=== PATIENT | female | born 1990 | race Caucasian/White ===

== ENCOUNTER 2017-09-10 23:08 | Emergency (ER) | payer OTHER ==
[~2017-09-10] VITALS: Ht 162.6 cm; Wt 91.2 kg
[2017-09-10] MEDS ORDERED: VENTOLIN HFA 1818 GM (23:20)
[2017-09-11 01:00] LABS: HEMOGLOBIN 14.9 gm/dL (12.0-15.0); MCH 30.8 pg (26.0-34.0); MCHC 33.2 g/dL (28.0-37.0); MCV 92.8 fL (80.0-100.0); MPV 10.5 fl. (7.2-11.1); NUCLEATED RBCS 0 /100WBC; PLATELET COUNT* 212 thou/uL (150-400); RBC 4.85 mil/uL (4.20-5.00); RDW-CV 12.5 % (10.5-14.5); WBC 12.8 thou/uL (4.0-11.0)
[2017-09-11 01:02] LABS: ANION GAP 11 mmol/L (7-16); BUN 18 mg/dL (7-18); CALCIUM 8.6 mg/dL (8.5-10.1); CHLORIDE 106 mmol/L (98-107); CO2 26 mmol/L (21-32); CREATININE 0.8 mg/dL (0.6-1.3); GLUCOSE 137 mg/dL (70-99); POTASSIUM 4.5 mmol/L (3.5-5.1); SODIUM 143 mmol/L (136-145)
[2017-09-11 01:12] LABS: ALBUMIN 3.7 g/dL (3.4-5.0); ALKALINE PHOSPHATASE 71 U/L (46-116); SGOT 14 U/L (15-37); SGPT 33 U/L (30-65); TOTAL BILIRUBIN 0.6 mg/dL (<0.1-1.0); TOTAL PROTEIN 7.4 g/dL (6.4-8.2); TROPONIN-I LEVEL <0.06 ng/mL (<0.06)
[2017-09-11 01:25] LABS: URINE BILIRUBIN NEGATIVE (Negative); URINE BLOOD NEGATIVE (Negative); URINE CLARITY CLEAR; URINE COLOR YELLOW; URINE GLUCOSE-RANDOM NEGATIVE (Negative); URINE KETONES NEGATIVE (Negative); URINE LEUKOCYTES-REFLEX NEGATIVE (Negative); URINE NITRITE-REFLEX NEGATIVE (Negative); URINE PROTEIN NEGATIVE (Negative); URINE SPECIFIC GRAVITY >= 1.030 (1.005-1.030); URINE UROBILINOGEN 0.2 E.U./dl (0.2-1.0)
[2017-09-11] MEDS ORDERED: CARAFATE 1 GM TA1 GM PO (02:13)
[2017-09-11 02:33] LABS: ABSOLUTE BASOPHILS 0.1 thou/uL (0.0-0.2); ABSOLUTE LYMPHOCYTES 1.2 thou/uL (0.8-5.3); ABSOLUTE MONOCYTES 0.6 thou/uL (0.0-1.2); ABSOLUTE NEUTROPHILS 10.9 thou/uL (1.6-8.1)
[2017-09-11 02:34] LABS: LARGE PLATELETS RARE; PLATELET ESTIMATE ADEQUATE
[2017-09-11 02:37] VITALS: BP 108/59
--- NOTE | 2017-09-11 10:48 | EKG ---
[place] [address] ELECTROCARDIOGRAM REPORT Name: LEONARD FOWLER Room: [facility]#: [id number] Admission: 09/10/17 Attend Phys: Discharge: 09/11/17 Date of : [birth year] Report #: [id number] THIS REPORT FOR: //name// [facility] ED Test Date: 2017-09-10 Test Time: 23:18:45 Pat Name: LEONARD FOWLER Department: Room: 18 Gender: F [employer]: HUSAM : 1990 Requested By: DR CHAKRABORTY Order Number: [id number] MD: Rashard Escobedo Measurements Intervals [place] Rate: 82 P: 28 DC: 124 QRS: 34 QRSD: 86 T: 26 QT: 362 QTc: 423 Interpretive Statements Sinus rhythm Probable left atrial enlargement Baseline wander in lead(s) II,aVR No previous ECG available for comparison Electronically Signed On 09-11-2017 10:47:53 [employer] by Rashard Escobedo [email or web address] <ELECTRONICALLY SIGNED> By: Rashard Escobedo MD, [facility] 09/11/17 1047 2318 Rashard Escobedo MD, FACC /EPI
== END 2017-09-11 02:40 | disposition home or self-care (01) ==
LOC: M.ERS 23:08
PROVIDERS: Personal Emergency Response Attendant
DX: K21.9 Gastro-esophageal reflux disease without esophagitis (principal); F17.210 Nicotine dependence, cigarettes, uncomplicated; Z88.8 Allergy status to other drugs, medicaments and biological substances